=== PATIENT | male | born 1950 | race Caucasian/White ===

== ENCOUNTER → 2018-06-16 | Day surgery (SDC) | payer MEDICARE, OTHER ==
[2018-06-14 09:01] LABS: BASOPHILS % 0.5 % (0.0-1.0); EOSINOPHILS # (AUTO) 0.1 (0.0-0.4); HEMATOCRIT 45.4 % (38.2-49.6); HEMOGLOBIN 15.4 g/dL (14.0-18.0); LYMPHOCYTES # (AUTO) 1.5 (1.0-3.2); LYMPHOCYTES % 25.1 % (18.0-39.1); MEAN CORPUSCULAR HEMOGLOBIN 31.8 pg (28-32); MEAN CORPUSCULAR HGB CONC 33.9 g/dL (31-35); MEAN CORPUSCULAR VOLUME 93.6 fL (81-99); MONOCYTES # (AUTO) 0.6 (0.2-0.8); MONOCYTES % 10.4 % (4.4-11.3); NEUTROPHILS # (AUTO) 3.9 (2.1-6.9); NEUTROPHILS % 62.7 % (38.7-80.0); PLATELET COUNT 187 x10e3/uL (140-360); RED BLOOD COUNT 4.85 x10e6/uL (4.3-5.7)
--- NOTE | 2018-06-14 09:32 | Diagnostic Imaging Report ---
Chest, 2 views, 06/14/2018. History: Preop for finger surgery. Comparison: None available. Findings: The cardiomediastinal silhouette and pulmonary vasculature are within normal limits. There is biapical pleural thickening. The lungs are clear without evidence of consolidation or pleural effusion. Degenerative changes are present throughout the thoracic spine. There are no acute osseous or soft tissue abnormalities. Impression: No acute cardiopulmonary abnormality. Signed by: Nasir Gongora on 06/14/2018 9:29 AM
[~2018-06-16] MED LIST: ASPIR 8181 MG PO; BUPIVACAINE HCL 0.5% INJ 30 ML VIAL INJ ONE; CEFAZOLIN SOD 1 GM/NS 50ML 50 ML IV ONE; CIALIS PO; CLOPIDOGREL75 MG PO; DEXAMETHASONE SOD PHOS INJ 4 MG/ML VIAL ONE; EPHEDRINE SULFATE INJ 50 MG/10 ML SYR ONE; FENTANYL CITRATE/PF 100MCG/2 ML INJ ONE; LEVOTHYROXINE50 MCG PO; LIDOCAINE HCL 2% LOCAL INJ 5 ML SDV VIAL INJ ONE; METOPROLOL SUCC50 MG PO; MIDAZOLAM HCL 2 MG/2 ML VIAL ONE; MUPIROCIN 2% OINT 22 GM TUBE ONE; OMEPRAZOLE40 MG PO; ONDANSETRON HCL INJ 2MG/ML 2ML 2 MG/ML VIAL ONE; PRAVASTATIN SOD40 MG PO; PROPOFOL IV EMULSION 10 MG/ML 20 ML VIAL ONE; SEVOFLURANE INHAL SOLN 250 ML PEN BTL ONE; ZYRTEC10 MG PO
--- OUTSIDE RECORDS SUMMARY | 2018-06-16 05:18 | XMS REPORT | Summary of Care ---
Author Author [facility] Organization [facility] Address Unknown Phone Unavailable Encounter HQ Jhon(FIN) [id number] Date(s): 04/26/18 - 04/27/18 [facility] [address] [place] [address]- [phone] Discharge Disposition: Home or Self Care Vital Signs 1 2 3 Most recent to oldest [Reference Range]: 170.18 cm (04/26/18 10:54 AM) 170.18 cm (04/22/18 8:38 AM) Height 98.1 DegF (04/22/18 9:51 AM) Temperature Oral [96.4-99.1 DegF] 118/64 mmHg (04/27/18 7:00 AM) 124/60 mmHg (04/27/18 6:00 AM) 150/80 mmHg *HI* (04/27/18 5:00 AM) Blood Pressure [90-140/60-90 mmHg] 15 BRMIN (04/27/18 7:00 AM) 18 BRMIN (04/27/18 6:00 AM) 17 BRMIN (04/27/18 5:00 AM) Respiratory Rate [14-20 BRMIN] 66 bpm (04/26/18 7:23 AM) 64 bpm (04/22/18 9:51 AM) Peripheral Pulse Rate [60-100 bpm] 72.727 kg (04/26/18 10:54 AM) 73.773 kg (04/22/18 8:38 AM) Weight 25.11 m2 (04/26/18 10:54 AM) 25.47 m2 (04/22/18 8:38 AM) Body Mass Index Problem List Condition Effective Dates Status Health Status Informant GERD Active (gastroesophageal reflux disease)(Confirmed) HTN Active (hypertension)(Confi rmed) Hypothyroid(Confirme Active d) Cancer of Resolved prostate(Confirmed) PVD (peripheral Active vascular disease)(Confirmed) TIA (transient Resolved ischemic attack)(Confirmed) Allergies, Adverse Reactions, Alerts Substance Reaction Severity Status NKDA Active Medications acetaminophen 650 mg, 2 tab, Route: PO, Drug form: TAB, Q4H, Dosing Weight 73.773, kg, PRN [place] n Score 1-3, Start date: 04/26/18 10:22:00 CDT, Duration: 30 day, Stop date: 01/03 10:21:00 CDT Notes: Do not exceed 4 gm/day. (Same as: Tylenol) Start Date: 04/26/18 Stop Date: 04/27/18 Status: Discontinued aspirin 81 mg tablet, chewable 81 mg, 1 tab, Route: CHEW, Drug form: CHEWTAB, Daily, Dosing Weight 72.727, kg, Start date: 04/26/18 9:00:00 CDT, Duration: 30 day, Stop date: 05/25/18 9:00:00 CDT Notes: Take with food. Start Date: 04/26/18 Stop Date: 04/27/18 Status: Discontinued cetirizine 10 mg, 2 tab, Route: PO, Drug form: TAB, Daily, Dosing Weight 72.727, kg, Start date: 04/27/18 9:00:00 CDT, Duration: 30 day, Stop date: 05/26/18 9:00:00 CDT Notes: (Same As: Zyrtec) Start Date: 04/27/18 Stop Date: 04/27/18 Status: Discontinued clopidogrel 75 mg, 1 tab, Route: PO, Drug form: TAB, Daily, Dosing Weight 72.727, kg, Start date: 04/26/18 9:00:00 CDT, Duration: 30 day, Stop date: 05/25/18 9:00:00 CDT Notes: (Same As: Plavix) Start Date: 04/26/18 Stop Date: 04/27/18 Status: Discontinued enoxaparin 40 mg, 0.4 mL, Route: SUB-Q, Drug form: INJ, [id number], Dosing Weight 72.727, kg, Start date: 04/26/18 13:00:00 CDT, Duration: 30 day, Stop date: 05/25/18 13:00: 00 CDT Notes: (Same as: Lovenox) Start Date: 04/26/18 Stop Date: 04/27/18 Status: Discontinued ePHEDrine (ANES) Route: IV, Drug form: INJ, ONCE, Stop date: 04/26/18 9:06:00 CDT Start Date: 04/26/18 Stop Date: 04/26/18 Status: Completed fentaNYL (ANES) Route: IV, Drug form: INJ, ONCE, Stop date: 04/26/18 8:36:00 CDT Start Date: 04/26/18 Stop Date: 04/26/18 Status: Completed heparin (ANES) Route: IV, Drug form: INJ, ONCE, Stop date: 04/26/18 9:06:00 CDT Start Date: 04/26/18 Stop Date: 04/26/18 Status: Completed hydrALAZINE (ANES) Route: IV, Drug form: INJ, ONCE, Stop date: 04/26/18 9:50:00 CDT Start Date: 04/26/18 Stop Date: 04/26/18 Status: Completed Lactated Ringers Injection IV (ANES) 1000 mL Route: IV, Total Volume: 1,000, Start date: 04/26/18 7:45:00 CDT, Stop date: 02/02 8:45:00 CDT Start Date: 04/26/18 Stop Date: 04/26/18 Status: Completed levothyroxine 75 microgram, 1 tab, Route: PO, Drug form: TAB, [id number], Dosing Weight 72.727, kg , Start date: 04/27/18 6:30:00 CDT, Duration: 30 day, Stop date: 05/26/18 6:30:0 0 CDT Notes: Take 1 hour before or 2 hours after meal; Enteral feeds may interefere wi th the absorption of this medication. (Same as:Synthroid, Levothroid) Start Date: 04/27/18 Stop Date: 04/27/18 Status: Discontinued lidocaine (ANES) Route: IV, Drug form: INJ, ONCE, Stop date: 04/26/18 9:01:00 CDT Start Date: 04/26/18 Stop Date: 04/26/18 Status: Completed metoclopramide (ANES) Route: IV, Drug form: INJ, ONCE, Stop date: 04/26/18 8:36:00 CDT Start Date: 04/26/18 Stop Date: 04/26/18 Status: Completed midazolam (ANES) Route: IV, Drug form: SOLN, ONCE, Stop date: 04/26/18 8:36:00 CDT Start Date: 04/26/18 Stop Date: 04/26/18 Status: Completed morphine Sulfate 1 mg, 0.5 mL, Route: IVP, Drug form: SOLN, Q2H, Dosing Weight 73.773, kg, PRN Pa in Score 4-6, Start date: 04/26/18 10:22:00 CDT, Duration: 30 day, Stop date: 10:21:00 CDT Start Date: 04/26/18 Stop Date: 04/27/18 Status: Discontinued omeprazole 20 mg, Route: PO, Drug form: ECTAB, Daily, Dosing Weight 72.727, kg, Start date: 04/27/18 9:00:00 CDT, Duration: 30 day, Stop date: 05/26/18 9:00:00 CDT Start Date: 04/27/18 Stop Date: 04/26/18 Status: Deleted ondansetron 4 mg, 2 mL, Route: IVP, Drug form: INJ, Q8H, Dosing Weight 73.773, kg, PRN Nause a & Vomiting, Start date: 04/26/18 10:22:00 CDT, Duration: 30 day, Stop date: 05/26/18 10:21:00 CDT Notes: (Same as: Iesha) MEDICATION WASTE Product Size: 4 mgProduct Was tex: ___ mg Start Date: 04/26/18 Stop Date: 04/27/18 Status: Discontinued ondansetron (ANES) Route: IV, Drug form: INJ, ONCE, Stop date: 04/26/18 9:38:00 CDT Start Date: 04/26/18 Stop Date: 04/26/18 Status: Completed phenylephrine (ANES) Route: IV, Drug form: INJ, ONCE, Stop date: 04/26/18 9:06:00 CDT Start Date: 04/26/18 Stop Date: 04/26/18 Status: Completed pravastatin 40 mg, 2 tab, Route: PO, Drug form: TAB, Bedtime, Dosing Weight 72.727, kg, Star t date: 04/26/18 21:00:00 CDT, Duration: 30 day, Stop date: 05/25/18 21:00:00 CD T Notes: (Same as: Pravachol) Start Date: 04/26/18 Stop Date: 04/27/18 Status: Discontinued propofol (ANES) Route: IV, Drug form: INJ, ONCE, Stop date: 04/26/18 9:01:00 CDT Start Date: 04/26/18 Stop Date: 04/26/18 Status: Completed protamine (ANES) 10 mg Route: IV, Drug form: INJ, Start date: 04/26/18 9:22:00 CDT, Stop date: 04/26/18 10:22:00 CDT Start Date: 04/26/18 Stop Date: 04/26/18 Status: Completed Protonix 40 mg, 1 tab, Route: PO, Drug form: ECTAB, Daily, Start date: 04/27/18 9:00:00 C DT, Duration: 30 day, Stop date: 05/26/18 9:00:00 CDT Notes: Tablet should not be chewed or crushed.(Same as: Protonix) Start Date: 04/27/18 Stop Date: 04/27/18 Status: Discontinued Sodium Chloride 0.9% IV 1,000 mL 1,000 mL, Rate: 125 ml/hr, Infuse over: 8 hr, Route: IV, Dosing Weight 73.773 kg , Total Volume: 1,000, Start date: 04/26/18 10:22:00 CDT, Duration: 30 day, Stop date: 05/26/18 10:21:00 CDT, 1.88, m2 Start Date: 04/26/18 Stop Date: 04/27/18 Status: Discontinued Toprol-XL 50 mg oral tablet, extended release 50 mg, 1 tab, Route: PO, Drug form: ERTAB, Daily, Start date: 04/27/18 9:00:00 C DT, Duration: 30 day, Stop date: 05/26/18 9:00:00 CDT Notes: (Same as: Toprol XL) May split tab, but do not crush. Start Date: 04/27/18 Stop Date: 04/27/18 Status: Discontinued Results BLOOD BANK RESULTS 1 2 3 Most recent to oldest [Reference Range]: AB NEG *Unknown* (04/22/18 9:13 AM) ABO/Rh Negative (04/22/18 9:13 AM) Antibody Scrn ELECTROLYTES 1 2 3 Most recent to oldest [Reference Range]: 142 mEq/L (04/27/18 6:17 AM) 145 mEq/L (04/26/18 10:47 AM) 146 mEq/L *HI* (04/22/18 9:13 AM) Sodium Lvl [135-145 mEq/L] 3.9 mEq/L (04/27/18 6:17 AM) 4.3 mEq/L (04/26/18 10:47 AM) 4.9 mEq/L (04/22/18 9:13 AM) Potassium Lvl [3.5-5.1 mEq/L] 109 mEq/L (04/27/18 6:17 AM) 111 mEq/L *HI* (04/26/18 10:47 AM) 110 mEq/L *HI* (04/22/18 9:13 AM) Chloride Lvl [95-109 mEq/L] 27 mEq/L (04/27/18 6:17 AM) 28 mEq/L (04/26/18 10:47 AM) 32 mEq/L (04/22/18 9:13 AM) CO2 [24-32 mEq/L] 9.9 mEq/L *LOW* (04/27/18 6:17 AM) 10.3 mEq/L (04/26/18 10:47 AM) 8.9 mEq/L *LOW* (04/22/18 9:13 AM) AGAP [10.0-20.0 mEq/L] CHEM PANEL 1 2 3 Most recent to oldest [Reference Range]: 0.99 mg/dL (04/27/18 6:17 AM) 0.96 mg/dL (04/26/18 10:47 AM) 1.08 mg/dL (04/22/18 9:13 AM) Creatinine Lvl [0.50-1.40 mg/dL] 80 mL/min/1.73m2 1 *NA* (04/27/18 6:17 AM) 83 mL/min/1.73m2 2 *NA* (04/26/18 10:47 AM) 72 mL/min/1.73m2 3 *NA* (04/22/18 9:13 AM) eGFR 9 mg/dL (04/27/18 6:17 AM) 10 mg/dL (04/26/18 10:47 AM) 10 mg/dL (04/22/18 9:13 AM) BUN [7-22 mg/dL] 118 mg/dL *HI* (04/27/18 6:17 AM) 107 mg/dL *HI* (04/26/18 10:47 AM) 113 mg/dL *HI* (04/22/18 9:13 AM) Glucose Lvl [70-99 mg/dL] 8.7 mg/dL (04/27/18 6:17 AM) 8.5 mg/dL (04/26/18 10:47 AM) 9.1 mg/dL (04/22/18 9:13 AM) Calcium Lvl [8.5-10.5 mg/dL] 1Result Comment: The eGFR is calculated using the CKD-EPI formula. In most young, healthy individuals the eGFR will be >90 mL/min/1.73m2. The eGFR declines with age. An eGFR of 60-89 may be normal in some populations, particularly the elderly, for whom the CKD-EPI formula has not been extensively validated. Use of the eGFR is not recommended in the following populations: Individuals with unstable creatinine concentrations, including patients and those with serious co-morbid conditions. Patients with extremes in muscle mass or diet. The data above are obtained from the National Kidney Disease Education Program ( NKDEP) which additionally recommends that when the eGFR is used in patients with extremes of body mass index for purposes of drug dosing, the eGFR should be mul tiplied by the estimated BMI. 2Result Comment: The eGFR is calculated using the CKD-EPI formula. In most young, healthy individuals the eGFR will be >90 mL/min/1.73m2. The eGFR declines with age. An eGFR of 60-89 may be normal in some populations, particularly the elderly, for whom the CKD-EPI formula has not been extensively validated. Use of the eGFR is not recommended in the following populations: Individuals with unstable creatinine concentrations, including patients and those with serious co-morbid conditions. Patients with extremes in muscle mass or diet. The data above are obtained from the National Kidney Disease Education Program ( NKDEP) which additionally recommends that when the eGFR is used in patients with extremes of body mass index for purposes of drug dosing, the eGFR should be mul tiplied by the estimated BMI. 3Result Comment: The eGFR is calculated using the CKD-EPI formula. In most young, healthy individuals the eGFR will be >90 mL/min/1.73m2. The eGFR declines with age. An eGFR of 60-89 may be normal in some populations, particularly the elderly, for whom the CKD-EPI formula has not been extensively validated. Use of the eGFR is not recommended in the following populations: Individuals with unstable creatinine concentrations, including patients and those with serious co-morbid conditions. Patients with extremes in muscle mass or diet. The data above are obtained from the National Kidney Disease Education Program ( NKDEP) which additionally recommends that when the eGFR is used in patients with extremes of body mass index for purposes of drug dosing, the eGFR should be mul tiplied by the estimated BMI. URINE AND STOOL 1 2 3 Most recent to oldest [Reference Range]: Clear (04/22/18 9:13 AM) UA Turbidity [Clear] Ltyellow *NA* (04/22/18 9:13 AM) UA Color 7.0 (04/22/18 9:13 AM) UA pH [5.0-8.0] 1.005 (04/22/18 9:13 AM) UA Spec Grav [<=1.030] Negative *NA* (04/22/18 9:13 AM) UA Glucose [Negative] Small *ABN* (04/22/18 9:13 AM) UA Blood [Negative] Negative *NA* (04/22/18 9:13 AM) UA Ketones [Negative] Negative (04/22/18 9:13 AM) UA Protein [Negative] <=1.0 mg/dL *NA* (04/22/18 9:13 AM) UA Urobilinogen [0.1-1.0 mg/dL] Negative *NA* (04/22/18 9:13 AM) UA Bili [Negative] Negative (04/22/18 9:13 AM) UA Leuk Est [Negative] Negative (04/22/18 9:13 AM) UA Nitrite [Negative] 1 /HPF (04/22/18 9:13 AM) UA WBC [0-5 /HPF] <1 /HPF (04/22/18 9:13 AM) UA RBC [0-2 /HPF] None Seen (04/22/18 9:13 AM) UA Sq Epi [Few] HEMATOLOGY 1 2 3 Most recent to oldest [Reference Range]: 7.9 K/CMM (04/27/18 6:17 AM) 5.2 K/CMM (04/26/18 10:47 AM) 5.4 K/CMM (04/22/18 9:13 AM) WBC [3.7-10.4 K/CMM] 4.13 M/CMM *LOW* (04/27/18 6:17 AM) 4.53 M/CMM *LOW* (04/26/18 10:47 AM) 4.69 M/CMM *LOW* (04/22/18 9:13 AM) RBC [4.70-6.10 M/CMM] 13.1 g/dL *LOW* (04/27/18 6:17 AM) 14.2 g/dL (04/26/18 10:47 AM) 15.0 g/dL (04/22/18 9:13 AM) Hgb [14.0-18.0 g/dL] 39.5 % *LOW* (04/27/18 6:17 AM) 42.1 % (04/26/18 10:47 AM) 44.0 % (04/22/18 9:13 AM) Hct [42.0-54.0 %] 95.5 fL *HI* (04/27/18 6:17 AM) 92.9 fL (04/26/18 10:47 AM) 93.8 fL (04/22/18 9:13 AM) MCV [80.0-94.0 fL] 31.6 pg *HI* (04/27/18 6:17 AM) 31.3 pg *HI* (04/26/18 10:47 AM) 31.9 pg *HI* (04/22/18 9:13 AM) MCH [27.0-31.0 pg] 33.1 g/dL (04/27/18 6:17 AM) 33.7 g/dL (04/26/18 10:47 AM) 34.0 g/dL (04/22/18 9:13 AM) MCHC [32.0-36.0 g/dL] 13.6 % (04/27/18 6:17 AM) 13.2 % (04/26/18 10:47 AM) 13.6 % (04/22/18 9:13 AM) RDW [11.5-14.5 %] 10.2 fL (04/27/18 6:17 AM) 10.0 fL (04/26/18 10:47 AM) 9.9 fL (04/22/18 9:13 AM) MPV [7.4-10.4 fL] 143 K/CMM (04/27/18 6:17 AM) 138 K/CMM (04/26/18 10:47 AM) 155 K/CMM (04/22/18 9:13 AM) Platelet [133-450 K/CMM] 78.2 % *HI* (04/27/18 6:17 AM) 66.3 % (04/26/18 10:47 AM) 61.8 % (04/22/18 9:13 AM) Segs [45.0-75.0 %] 11.5 % *LOW* (04/27/18 6:17 AM) 22.5 % (04/26/18 10:47 AM) 26.4 % (04/22/18 9:13 AM) Lymphocytes [20.0-40.0 %] 10.0 % (04/27/18 6:17 AM) 10.0 % (04/26/18 10:47 AM) 10.4 % (04/22/18:13 AM) Monocytes [2.0-12.0 %] 0.2 % (04/27/18 6:17 AM) 0.6 % (04/26/18 10:47 AM) 1.0 % (04/22/18 9:13 AM) Eosinophils [0.0-4.0 %] 0.1 % (04/27/18 6:17 AM) 0.6 % (04/26/18 10:47 AM) 0.4 % (04/22/18 9:13 AM) Basophils [0.0-1.0 %] 6.2 K/CMM (04/27/18 6:17 AM) 3.5 K/CMM (04/26/18 10:47 AM) 3.3 K/CMM (04/22/18 9:13 AM) Neutrophils # [1.5-8.1 K/CMM] 0.9 K/CMM *LOW* (04/27/18 6:17 AM) 1.2 K/CMM (04/26/18 10:47 AM) 1.4 K/CMM (04/22/18 9:13 AM) Lymphocytes # [1.0-5.5 K/CMM] 0.8 K/CMM (04/27/18 6:17 AM) 0.5 K/CMM (04/26/18 10:47 AM) 0.6 K/CMM (04/22/18 9:13 AM) Monocytes # [0.0-0.8 K/CMM] 0.1 K/CMM (04/22/18 9:13 AM) Eosinophils # [0.0-0.5 K/CMM] 12.4 seconds (04/22/18 9:13 AM) PT [12.0-14.7 seconds] 0.94 (04/22/18 9:13 AM) INR [0.85-1.17] 28.6 seconds (04/22/18 9:13 AM) PTT [22.9-35.8 seconds] Immunizations No data available for this section Procedures Procedure Date Related Diagnosis Body Site Status Angioplasty 01/25/18 Completed Atherectomy by laser 01/25/18 Completed Stent placement 2016 Completed Carotid endarterectomy 2015 Completed Hernia repair 2011 Completed Procedure 2008 Completed Social History Social History Type Response Substance Abuse Use: None. Sexual Sexually active: Yes. Exercise 1 Employment/School Status: Retired. Alcohol Current, Type Liquor. Frequency: Daily. Smoking Status Former smoker; Type: Cigarettes; Exposure to Tobacco Smoke None; Cigarette Smoking Last 365 Days No; Reg Smoking Cessation Counseling No entered on: 04/26/18 1stays active daily in yard Assessment and Plan Extracted from: Title: Clinical Document Author: Jerrell Pond MD Date: 04/26/18 OPERATIVE REPORT Date: April 26, 2018 Surgeon: Jerrell Pond MD Preoperative diagnosis: Peripheral vascular disease Postoperative diagnosis: Same Procedure: Abdominal and bilateral lower extremity angiogram, CSI atherectomy and drug-coated balloon angioplasty of the right superficial femoral artery. Indication: Symptomatic SFA stenosis In detail: The patient room and given general anesthesia with an LMA. Both groins were prepped and draped in usual sterile manner. Left achieved using ultrasound guidance and micropuncture technique. Patient was systemically heparinized. A 5 Welsh sheath was inserted. Abdominal bilateral lower extremity angiogram was his distal aortoiliac artery had some disease but it looked critical. The left superficial femoral has been treated before recently appears to be patent with patent stents and fairly decent runoff. On the right side the common femoral as well as the profunda and proximal superficial artery were patent. There was about a 10 cm segment calcified disease in the distal superficial femoral artery with 2 areas that appears to. Patient had a fairly decent runoff. A 6 minutes of the right superficial femoral artery. The lesions were crossed without much difficulty. CSI atherectomy was a 2.0 solid device was performed followed by a drug-coated balloon angioplasty using a 6 x 150 balloon. It had to be inflated to 7 austin to achieve an effect on the stenotic areas. A completion I would a patent superficial femoral artery however there was a dissection involving the proximal LAD did not appears to be hemodynamically compromising the flow. Repeat angioplasty with a known inflated to 3 austin slight improved angiographic result. There was very good flow distally. The sheath was then removed, heparin was then reversed with protamine and hemostasis was achieved with the minx device. Patient tolerated procedure well.
--- OUTSIDE RECORDS SUMMARY | 2018-06-16 05:18 | XMS REPORT | Summary of Care ---
Author Author [facility] Outpatient Imaging [facility] Address Unknown Phone Unavailable Encounter HQ Encntr_alias(FIN) [id number] Date(s): 06/15/16 - 06/15/16 [facility] Outpatient Imaging [facility] [address] [facility], [address] [place] [phone] Discharge Disposition: Home or Self Care Attending Physician: Tessa Degroot DO Vital Signs No data available for this section Problem List No data available for this section Allergies, Adverse Reactions, Alerts No data available for this section Medications No data available for this section Results No data available for this section Immunizations No data available for this section Procedures No data available for this section Social History No data available for this section Assessment and Plan No data available for this section
--- OUTSIDE RECORDS SUMMARY | 2018-06-16 05:18 | XMS REPORT | Continuity of Care Document ---
Author Author [facility] Interface Address Unknown Phone Unavailable Problems Problem Status Onset Date Classification Date Reported Comments Source UNK Active 04/12/2018 [facility] I73.9 Active 12/27/2017 [facility] M25.561 - PAIN IN RIGHT KNEE Active 06/15/2016 [facility] GERD (<span ID="[id number]">Confirmed</span>) Active Problem 04/29/2018 [facility] HTN (<span ID="[id number]">Confirmed</span>) Active Problem 04/29/2018 [facility] Hypothyroid Active Problem 04/29/2018 [facility] Cancer of prostate Resolved Problem 04/29/2018 [facility] PVD (<span ID="[id number]">Confirmed</span>) Active Problem 04/29/2018 [facility] TIA (<span ID="[id number]">Confirmed</span>) Resolved Problem 04/29/2018 [facility] PERIPHERAL VASCULAR DISEASE, UNSPECIFIED Active [facility] EMBOLISM AND THROMBOSIS OF ARTERIES OF T Active [facility] Medications Medication Details Route Status Patient Instructions Ordering Provider Order Date Source Omeprazole 20 mg, Route: PO, Drug form: ECTAB, Daily, Dosing Weight 72.727, kg, Start date: 04/27/18 9:00:00 CDT, Duration: 30 day, Stop date: 05/26/18 9:00:00 CDT No Longer Active 04/27/2018 [facility] 24 HR Metoprolol Tartrate 50 MG Extended Release Tablet [Toprol] 50 mg, 1 tab, Route: PO, Drug form: ERTAB, Daily, Start date: 04/27/18 9:00:00 CDT, Duration: 30 day, Stop date: 05/26/18 9:00:00 CDTNotes: (Same as: Toprol XL) May split tab, but do not crush. Inactive 04/27/2018 [facility] Protonix 40 mg, 1 tab, Route: PO, Drug form: ECTAB, Daily, Start date: 04/27/18 9:00:00 CDT, Duration: 30 day, Stop date: 05/26/18 9:00:00 CDTNotes: Tablet should not be chewed or crushed. (Same as: Protonix) Inactive 04/27/2018 [facility] Cetirizine 10 mg, 2 tab, Route: PO, Drug form: TAB, Daily, Dosing Weight 72.727, kg, Start date: 04/27/18 9:00:00 CDT, Duration: 30 day, Stop date: 05/26/18 9:00:00 CDTNotes: (Same As: Zyrtec) Inactive 04/27/2018 [facility] Thyroxine 75 microgram, 1 tab, Route: PO, Drug form: TAB, [id number], Dosing Weight 72.727, kg, Start date: 04/27/18 6:30:00 CDT, Duration: 30 day, Stop date: 05/26/18 6:30:00 CDTNotes: Take 1 hour before or 2 hours after meal; Enteral feeds may interefere with the absorption of this medication. (Same as:Synthroid, Levothroid) Inactive 04/27/2018 [facility] Pravastatin 40 mg, 2 tab, Route: PO, Drug form: TAB, Bedtime, Dosing Weight 72.727, kg, Start date: 04/26/18 21:00:00 CDT, Duration: 30 day, Stop date: 05/25/18 21:00:00 CDTNotes: (Same as: Pravachol) No Longer Active 04/27/2018 [facility] Enoxaparin 40 mg, 0.4 mL, Route: SUB-Q, Drug form: INJ, [id number], Dosing Weight 72.727, kg, Start date: 04/26/18 13:00:00 CDT, Duration: 30 day, Stop date: 05/25/18 13:00:00 CDTNotes: (Same as: Lovenox) No Longer Active 04/26/2018 [facility] Acetaminophen 650 mg, 2 tab, Route: PO, Drug form: TAB, Q4H, Dosing Weight 73.773, kg, PRN Pain Score 1-3, Start date: 04/26/18 10:22:00 CDT, Duration: 30 day, Stop date: 05/26/18 10:21:00 CDTNotes: Do not exceed 4 gm/day. (Same as: Tylenol) No Longer Active 04/26/2018 [facility] Ondansetron 4 mg, 2 mL, Route: IVP, Drug form: INJ, Q8H, Dosing Weight 73.773, kg, PRN Nausea & Vomiting, Start date: 04/26/18 10:22:00 CDT, Duration: 30 day, Stop date: 05/26/18 10:21:00 CDTNotes: (Same as: Iesha) MEDICATION WASTE Product Size: 4 mg Product Wasted: ___ mg No Longer Active 04/26/2018 [facility] Morphine 1 mg, 0.5 mL, Route: IVP, Drug form: SOLN, Q2H, Dosing Weight 73.773, kg, PRN Pain Score 4-6, Start date: 04/26/18 10:22:00 CDT, Duration: 30 day, Stop date: 05/26/18 10:21:00 CDT No Longer Active 04/26/2018 [facility] Sodium Chloride 0.9% IV 1,000 mL 1,000 mL, Rate: 125 ml/hr, Infuse over: 8 hr, Route: IV, Dosing Weight 73.773 kg, Total Volume: 1,000, Start date: 04/26/18 10:22:00 CDT, Duration: 30 day, Stop date: 05/26/18 10:21:00 CDT, 1.88, m2 No Longer Active 04/26/2018 [facility] hydrALAZINE (ANES) Route: IV, Drug form: INJ, ONCE, Stop date: 04/26/18 9:50:00 CDT Inactive 04/26/2018 [facility] ondansetron (ANES) Route: IV, Drug form: INJ, ONCE, Stop date: 04/26/18 9:38:00 CDT Inactive 04/26/2018 [facility] protamine (ANES) 10 mg Route: IV, Drug form: INJ, Start date: 04/26/18 9:22:00 CDT, Stop date: 04/26/18 10:22:00 CDT Inactive 04/26/2018 [facility] phenylephrine (ANES) Route: IV, Drug form: INJ, ONCE, Stop date: 04/26/18 9:06:00 CDT Inactive 04/26/2018 [facility] heparin (ANES) Route: IV, Drug form: INJ, ONCE, Stop date: 04/26/18 9:06:00 CDT Inactive 04/26/2018 [facility] ePHEDrine (ANES) Route: IV, Drug form: INJ, ONCE, Stop date: 04/26/18 9:06:00 CDT Inactive 04/26/2018 [facility] lidocaine (ANES) Route: IV, Drug form: INJ, ONCE, Stop date: 04/26/18 9:01:00 CDT Inactive 04/26/2018 [facility] propofol (ANES) Route: IV, Drug form: INJ, ONCE, Stop date: 04/26/18 9:01:00 CDT Inactive 04/26/2018 [facility] clopidogrel 75 mg, 1 tab, Route: PO, Drug form: TAB, Daily, Dosing Weight 72.727, kg, Start date: 04/26/18 9:00:00 CDT, Duration: 30 day, Stop date: 05/25/18 9:00:00 CDTNotes: (Same As: Plavix) No Longer Active 04/26/2018 [facility] Aspirin 81 MG Chewable Tablet 81 mg, 1 tab, Route: CHEW, Drug form: CHEWTAB, Daily, Dosing Weight 72.727, kg, Start date: 04/26/18 9:00:00 CDT, Duration: 30 day, Stop date: 05/25/18 9:00:00 CDTNotes: Take with food. No Longer Active 04/26/2018 [facility] fentaNYL (ANES) Route: IV, Drug form: INJ, ONCE, Stop date: 04/26/18 8:36:00 CDT Inactive 04/26/2018 [facility] midazolam (ANES) Route: IV, Drug form: SOLN, ONCE, Stop date: 04/26/18 8:36:00 CDT Inactive 04/26/2018 [facility] metoclopramide (ANES) Route: IV, Drug form: INJ, ONCE, Stop date: 04/26/18 8:36:00 CDT Inactive 04/26/2018 [facility] Lactated Ringers Injection IV (ANES) 1000 mL Route: IV, Total Volume: 1,000, Start date: 04/26/18 7:45:00 CDT, Stop date: 04/26/18 8:45:00 CDT Inactive 04/26/2018 [facility] Allergies, Adverse Reactions, Alerts Substance Category Reaction Severity Reaction type Status Date Reported Comments Source Immunizations Immunization Date Given Site Status Last Updated Comments Source Results Order Name Results Value Reference Range Date Interpretation Comments Source ELECTROLYTES AGAP 9.9 meq/L 10.0 - 20.0 04/27/2018 [facility] ELECTROLYTES CO2 27 meq/L 24 - 32 04/27/2018 [facility] ELECTROLYTES Calcium Lvl 8.7 mg/dL 8.5 - 10.5 04/27/2018 [facility] ELECTROLYTES Creatinine Lvl 0.99 mg/dL 0.50 - 1.40 04/27/2018 [facility] ELECTROLYTES Glucose Lvl 118 mg/dL 70 - 99 04/27/2018 [facility] ELECTROLYTES BUN 9 mg/dL 7 - 22 04/27/2018 [facility] ELECTROLYTES eGFR 80 mL/min/1.73m2 04/27/2018 Result Comment: The eGFR is calculated using the [...] from the National Kidney Disease Education Program (NKDEP) which additionally recommends that when the eGFR is used in patients with extremes of body mass index for purposes of drug dosing, the eGFR should be multiplied by the estimated BMI. [facility] ELECTROLYTES Chloride Lvl 109 meq/L 95 - 109 04/27/2018 [facility] ELECTROLYTES Potassium Lvl 3.9 meq/L 3.5 - 5.1 04/27/2018 [facility] ELECTROLYTES Sodium Lvl 142 meq/L 135 - 145 04/27/2018 [facility] HEMATOLOGY MCH 31.6 pg 27.0 - 31.0 04/27/[address] [facility] MPV 10.2 fL 7.4 - 10.4 04/27/[address] [facility] RDW 13.6 % 11.5 - 14.5 04/27/[address] [facility] MCHC 33.1 g/dL 32.0 - 36.0 04/27/[address] [facility] Hct 39.5 % 42.0 - 54.0 04/27/[address] [facility] MCV 95.5 fL 80.0 - 94.0 04/27/[address] [facility] Platelet 143 K/CMM 133 - 450 04/27/[address] [facility] Hgb 13.1 g/dL 14.0 - 18.0 04/27/[address] [facility] RBC 4.13 M/CMM 4.70 - 6.10 04/27/[address] [facility] WBC 7.9 K/CMM 3.7 - 10.4 04/27/[address] [facility] Monocytes # 0.8 K/CMM 0.0 - 0.8 04/27/[address] [facility] Lymphocytes # 0.9 K/CMM 1.0 - 5.5 04/27/[address] [facility] Neutrophils # 6.2 K/CMM 1.5 - 8.1 04/27/[address] [facility] Basophils 0.1 % 0.0 - 1.0 04/27/[address] [facility] Monocytes 10.0 % 2.0 - 12.0 04/27/[address] [facility] Eosinophils 0.2 % 0.0 - 4.0 04/27/[address] [facility] Segs 78.2 % 45.0 - 75.0 04/27/[address] [facility] Lymphocytes 11.5 % 20.0 - 40.0 04/27/2018 [facility] Chest 1view DX Chest 1view DX Patient Name: RUBINA PROCTOR : 1950; Age: 67 years y/o Male MR: [id number] * CHEST, portable, 1 view HISTORY: Status post lower extremity angiogram, respiratory distress. COMPARISON: 04/22/2018. The study of 01/21/2018 was reviewed. TECHNIQUE: A portable frontal radiograph of the chest was obtained. FINDINGS: There is mild right basilar discoid atelectasis. There is a slightly shallow degree of inspiration. There is slight chronic elevation the right hemidiaphragm which is unchanged. The lungs are otherwise clear. There are no pulmonary infiltrates or pleural effusions. The heart is normal in size. The regional skeleton is unremarkable. IMPRESSION: 1. No active disease. 2. Slightly shallow degree of inspiration and mild right basilar atelectasis. SL: [id number] 04/27/2018 - - Read by: Jesus Colunga MD Dictated Date/time: 04/27/18 08:52 Electronically Signed by: Jesus Colunga MD 04/27/18 08:54 FINAL REPORT [facility] CHEM PANEL eGFR 83 mL/min/1.73m2 04/26/2018 Result Comment: The eGFR is calculated using the [...] from the National Kidney Disease Education Program (NKDEP) which additionally recommends that when the eGFR is used in patients with extremes of body mass index for purposes of drug dosing, the eGFR should be multiplied by the estimated BMI. [facility] CHEM PANEL AGAP 10.3 meq/L 10.0 - 20.0 04/26/2018 [facility] CHEM PANEL Calcium Lvl 8.5 mg/dL 8.5 - 10.5 04/26/2018 [facility] CHEM PANEL CO2 28 meq/L 24 - 32 04/26/2018 [facility] CHEM PANEL Potassium Lvl 4.3 meq/L 3.5 - 5.1 04/26/2018 [facility] CHEM PANEL Chloride Lvl 111 meq/L 95 - 109 04/26/2018 [facility] CHEM PANEL Sodium Lvl 145 meq/L 135 - 145 04/26/2018 [facility] CHEM PANEL Creatinine Lvl 0.96 mg/dL 0.50 - 1.40 04/26/2018 [facility] CHEM PANEL BUN 10 mg/dL 7 - 22 04/26/2018 [facility] CHEM PANEL Glucose Lvl 107 mg/dL 70 - 99 04/26/2018 [facility] HEMATOLOGY Segs 66.3 % 45.0 - 75.0 04/26/2018 [facility] HEMATOLOGY Lymphocytes 22.5 % 20.0 - 40.0 04/26/2018 [facility] HEMATOLOGY Lymphocytes # 1.2 K/CMM 1.0 - 5.5 04/26/2018 [facility] HEMATOLOGY Monocytes # 0.5 K/CMM 0.0 - 0.8 04/26/[address] [facility] Basophils 0.6 % 0.0 - 1.0 04/26/[address] [facility] Neutrophils # 3.5 K/CMM 1.5 - 8.1 04/26/[address] [facility] Monocytes 10.0 % 2.0 - 12.0 04/26/[address] [facility] Eosinophils 0.6 % 0.0 - 4.0 04/26/[address] [facility] MPV 10.0 fL 7.4 - 10.4 04/26/[address] [facility] Platelet 138 K/CMM 133 - 450 04/26/[address] [facility] RDW 13.2 % 11.5 - 14.5 04/26/[address] [facility] MCHC 33.7 g/dL 32.0 - 36.0 04/26/[address] [facility] MCH 31.3 pg 27.0 - 31.0 04/26/[address] [facility] MCV 92.9 fL 80.0 - 94.0 04/26/[address] [facility] Hct 42.1 % 42.0 - 54.0 04/26/[address] [facility] Hgb 14.2 g/dL 14.0 - 18.0 04/26/[address] [facility] RBC 4.53 M/CMM 4.70 - 6.10 04/26/[address] [facility] WBC 5.2 K/CMM 3.7 - 10.4 04/26/2018 [facility] BLOOD BANK RESULTS Antibody Scrn Negative (04/22/18 9:13 AM) 04/22/2018 [facility] BLOOD [facility] RESULTS ABO/Rh AB NEG 04/22/2018 [facility] ELECTROLYTES AGAP 8.9 meq/L 10.0 - 20.0 04/22/2018 [facility] ELECTROLYTES eGFR 72 mL/min/1.73m2 04/22/2018 Result Comment: The eGFR is calculated using the [...] from the National Kidney Disease Education Program (NKDEP) which additionally recommends that when the eGFR is used in patients with extremes of body mass index for purposes of drug dosing, the eGFR should be multiplied by the estimated BMI. [facility] ELECTROLYTES Potassium Lvl 4.9 meq/L 3.5 - 5.1 04/22/2018 [facility] ELECTROLYTES Sodium Lvl 146 meq/L 135 - 145 04/22/2018 [facility] ELECTROLYTES Creatinine Lvl 1.08 mg/dL 0.50 - 1.40 04/22/2018 [facility] ELECTROLYTES Calcium Lvl 9.1 mg/dL 8.5 - 10.5 04/22/2018 [facility] ELECTROLYTES CO2 32 meq/L 24 - 32 04/22/2018 [facility] ELECTROLYTES Chloride Lvl 110 meq/L 95 - 109 04/22/2018 [facility] ELECTROLYTES BUN 10 mg/dL 7 - 22 04/22/2018 [facility] ELECTROLYTES Glucose Lvl 113 mg/dL 70 - 99 04/22/[address] [facility] Neutrophils # 3.3 K/CMM 1.5 - 8.1 04/22/[address] [facility] Eosinophils # 0.1 K/CMM 0.0 - 0.5 04/22/[address] [facility] Lymphocytes # 1.4 K/CMM 1.0 - 5.5 04/22/[address] [facility] Monocytes # 0.6 K/CMM 0.0 - 0.8 04/22/[address] [facility] Basophils 0.4 % 0.0 - 1.0 04/22/[address] [facility] Eosinophils 1.0 % 0.0 - 4.0 04/22/[address] [facility] Monocytes 10.4 % 2.0 - 12.0 04/22/[address] [facility] Segs 61.8 % 45.0 - 75.0 04/22/[address] [facility] Lymphocytes 26.4 % 20.0 - 40.0 04/22/[address] [facility] PTT 28.6 s 22.9 - 35.8 04/22/[address] [facility] INR 0.94 0.85 - 1.17 04/22/[address] [facility] PT 12.4 s 12.0 - 14.7 04/22/[address] [facility] RBC 4.69 M/CMM 4.70 - 6.10 04/22/[address] [facility] Hgb 15.0 g/dL 14.0 - 18.0 04/22/2018 [facility] HEMATOLOGY WBC 5.4 K/CMM 3.7 - 10.4 04/22/2018 [facility] HEMATOLOGY MPV 9.9 fL 7.4 - 10.4 04/22/2018 [facility] HEMATOLOGY Platelet 155 K/CMM 133 - 450 04/22/2018 [facility] HEMATOLOGY RDW 13.6 % 11.5 - 14.5 04/22/[address] [facility] MCHC 34.0 g/dL 32.0 - 36.0 04/22/2018 [facility] HEMATOLOGY MCV 93.8 fL 80.0 - 94.0 04/22/2018 [facility] HEMATOLOGY Hct 44.0 % 42.0 - 54.0 04/22/[address] [facility] MCH 31.9 pg 27.0 - 31.0 04/22/2018 [facility] URINE AND STOOL UA Leuk Est Negative (04/22/18 9:13 AM) Negative 04/22/2018 [facility] URINE AND STOOL UA Sq Epi None Seen (04/22/18 9:13 AM) Few 04/22/2018 [facility] URINE AND STOOL UA WBC 1 /HPF 0 - 5 04/22/2018 [facility] URINE AND STOOL UA pH 7.0 5.0 - 8.0 04/22/2018 [facility] URINE AND STOOL UA Spec Grav 1.005 <=1.030 04/22/2018 [facility] URINE AND STOOL UA Color Ltyellow 04/22/2018 [facility] URINE AND STOOL UA Protein Negative (04/22/18 9:13 AM) Negative 04/22/2018 [facility] URINE AND STOOL UA Turbidity Clear (04/22/18 9:13 AM) Clear 04/22/2018 [facility] URINE AND STOOL UA Ketones Negative *NA* (04/22/18 9:13 AM) Negative 04/22/2018 [facility] URINE AND STOOL UA Glucose Negative *NA* (04/22/18 9:13 AM) Negative 04/22/2018 [facility] URINE AND STOOL UA Bili Negative *NA* (04/22/18 9:13 AM) Negative 04/22/2018 [facility] URINE AND STOOL UA Urobilinogen <=1.0 mg/dL 0.1 - 1.0 04/22/2018 [facility] URINE AND STOOL UA Nitrite Negative (04/22/18 9:13 AM) Negative 04/22/2018 [facility] URINE AND STOOL UA Blood Small *ABN* (04/22/18 9:13 AM) Negative 04/22/2018 [facility] URINE AND STOOL UA RBC null 0 - 2 04/22/2018 [facility] Chest 2 views DX Chest 2 views DX Two-view chest. INDICATION: Preop. Comparison: 01/21/2018 chest radiograph. FINDINGS: The cardiomediastinal silhouette is normal in size. Lungs are clear. Costophrenic angles are sharp. No suspicious osseous abnormality is seen. IMPRESSION: No acute or active pulmonary findings. SL: [id number] 04/22/2018 - - Read by: Davis Kumar MD Dictated Date/time: 04/22/18 09:28 Electronically Signed by: Davis Kumar MD 04/22/18 09:28 FINAL REPORT [facility] Chest 2 views DX Chest 2 views DX Patient Name: RUBINA PROCTOR : 1950; Age: 67 years y/o Male MR: [id number] Study: Chest 2 views DX 01/21/2018 9:34 AM [facility] TECHNICIAN Ordering Physician: Jerrell Pond MD Comparison: None Clinical Indication: Coughing - pre-op cxr Findings: No focal consolidation, pleural effusion or pneumothorax. The cardiac silhouette is within normal limits. Midline trachea. Atherosclerotic calcifications of the aortic arch. Degenerative changes of the spine. IMPRESSION: No acute thoracic abnormalities. SL: [id number] 01/21/2018 - - Read by: Ron Conley Dictated Date/time: 01/21/18 11:10 Electronically Signed by: Ron Conley 01/21/18 11:12 FINAL REPORT [facility] Abdominal Aorta with runoff CTA Abdominal Aorta with runoff CTA AORTOFEMORAL CTA: HISTORY: Peripheral arterial disease with bilateral lower extremity pain, paresthesias and numbness. History of left superficial femoral stent. TECHNIQUE: Multislice helical imaging was done from the upper thoracic aorta through the feet bilaterally during IV contrast bolus. Sagittal and coronal MIP tomograms were also done. Sagittal and coronal MIP tomograms and 3-D volume rendered images were obtained. DLP 1216 mGycm. AORTOILIAC: There is calcified and noncalcified plaque in the descending thoracic aorta and abdominal aorta, with more extensive calcified plaque in the infrarenal aorta and common iliac arteries. There are focal moderate stenoses of the mid infrarenal aorta, right common iliac artery origin and the mid left common iliac artery. There is no other significant aortoiliac stenosis. The celiac, SMA and AIXA are patent without significant stenosis. The renal arteries are patent with mild stenosis of the origin of the main right renal artery. A small accessory upper pole right renal artery is noted. The internal iliac trunks are patent with moderate stenoses at the origins. RIGHT LOWER EXTREMITY: Diffuse atherosclerotic changes in the lower extremity vasculature is noted. There is focal occlusion or severe stenosis in the distal superficial femoral artery adductor canal. The popliteal artery is patent showing mild disease. There is multifocal stenotic and occlusive disease throughout the runoff vessels, with a dominant posterior tibial artery showing occlusion in the distal leg with reconstitution at the ankle. LEFT LOWER EXTREMITY: Diffuse atherosclerotic changes in the lower extremity vasculature is noted. There is moderate stenotic disease involving the proximal superficial femoral artery. There is a stent extending from the proximal superficial femoral artery to the proximal popliteal artery showing severe in- stent restenosis and occlusion in the mid stent. There is reconstitution of a small caliber popliteal artery below the stent. There is multifocal stenotic and occlusive disease of the runoff vessels, with a dominant posterior tibial artery which appears continuous. NON-ANGIOGRAPHIC FINDINGS: The liver, spleen, pancreas, kidneys and adrenal glands show no significant abnormalities. The gallbladder is unremarkable. There are no significant gastrointestinal tract abnormalities. Bilateral inguinal hernia repair with mesh is noted. There are no acute osseous abnormalities. There are no significant abnormalities in the visible chest. IMPRESSION: 1. Diffuse atherosclerotic disease in the aorta, iliac arteries and lower extremities. 2. Moderate focal stenotic disease in the mid infrarenal aorta, and right common iliac and left common iliac arteries. 3. Focal occlusion of the right femoropopliteal segment in the adductor canal. There is multifocal stenotic and occlusive disease in the right lower extremity runoff segment. 4. Focal occlusion of the left femoral-popliteal stent. There is multifocal stenotic and occlusive disease in the left lower extremity runoff segment. [id number] 12/29/2017 - - Read by: Pablito Morillo MD Dictated Date/time: 12/29/17 15:53 Electronically Signed by: Pablito Morillo MD 12/29/17 16:31 FINAL REPORT [facility] Knee 3 Views Bilateral DX Knee 3 Views Bilateral DX EXAM: XR Knee 3 Views Bilateral DX DATE: 06/15/2016 11:44 AM CDT INDICATION: M25.561 Pain in right knee Pain. COMPARISON: None available TECHNIQUE: AP, lateral and skyline patella projections of bilateral knees. DISCUSSION: No acute fracture is identified. Satisfactory alignment of the joint. No soft tissue abnormality is identified. . Incidental presence of vascular stents in the left distal thigh. IMPRESSION: No acute abnormality. . 06/15/2016 - - Read by: Hermann Schulz MD Dictated Date/time: 06/15/16 12:23 Electronically Signed by: Hermann Schulz MD 06/15/16 12:[address] [facility] Vital Signs Vital Sign Value Date Comments Source Respitory Rate 15 04/27/2018 [facility] Systolic (mm Hg) 118 04/27/2018 [facility] Diastolic (mm Hg) 64 04/27/2018 [facility] Systolic (mm Hg) 124 04/27/2018 [facility] Diastolic (mm Hg) 60 04/27/2018 [facility] Respitory Rate 18 04/27/2018 [facility] Systolic (mm Hg) 150 04/27/2018 [facility] Diastolic (mm Hg) 80 04/27/2018 [facility] Respitory Rate 17 04/27/2018 [facility] BMI Calculated 25.11 04/26/2018 [facility] Weight 72.727 04/26/2018 [facility] Height 170.18 cm 04/26/2018 [facility] Heart Rate 66 04/26/2018 [facility] Heart Rate 64 04/22/2018 [facility] Temperature Oral (F) 98.1 F 04/22/2018 [facility] Height 170.18 cm 04/22/2018 [facility] Weight 73.773 04/22/2018 [facility] BMI Calculated 25.47 04/22/2018 [facility] Encounters Location Location Details Encounter Type Encounter Number Reason For Visit Attending Provider ADM Date DC Date Status Source [facility] [place] [facility] [id number] Javier Hartley 10/12/2013 10/13/2013 ELVIS Garcia [facility] [place] [facility] [id number] Tessa Degroot 06/15/2016 06/16/2016 [facility] Inpatient [id number] 04/26/2018 04/27/2018 [facility] Procedures Procedure Code Date Perfomer Comments Source Angioplasty [id number] 01/25/2018 [facility] Atherectomy by laser [id number] 01/25/2018 [facility] Stent placement [id number] 02/16/2016 [facility] Carotid endarterectomy [id number] 02/15/2015 [facility] Hernia repair [id number] 02/15/2011 [facility] Procedure [id number] 02/15/2007 [facility]
--- OUTSIDE RECORDS SUMMARY | 2018-06-16 05:18 | XMS REPORT | Summary of Care ---
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 Role Phone ALVARADO Marte, SELVIN Unavailable Unavailable SHANTE Beard, CADY Unavailable Unavailable NIKO Santizo, MEL Unavailable Unavailable ALVARADO MONTALVOP, SELVIN Unavailable Unavailable CHRISTIANO Santizo, ANTONIO Unavailable Unavailable DANIEL RODRIGUES, LUIS Unavailable Unavailable NIKO RODRIGUES [place], MEL Unavailable Unavailable Unavailable Unavailable Functional Status Name Dates Details Functional status health issues are not documented Status: Name Dates Details Cognitive status health issues are not documented Status: Problems Name Dates Details Acute sinusitis (461.9, J01.90) Status: Active Difficulty waking (780.59, G47.8) Status: Active Dizzy spells (780.4, R42) Status: Active Acute bronchitis (466.0, J20.9) Status: Active Allergic rhinitis (477.9, J30.9) Status: Active Need for Zostavax administration (V04.89, Z23) Status: Active Acute non-recurrent sinusitis of other sinus (461.8, J01.80) Status: Active Low grade fever (780.60, R50.9) Status: Active Sore throat (462, J02.9) Status: Active Fever (780.60, R50.9) Status: Active Cough (786.2, R05) Status: Active Flu (487.1, J11.1) Status: Active Acute streptococcal pharyngitis (034.0, J02.0) Status: Active Flu (487.1, J11.1) Status: Active Chronic pain of both knees (719.46, M25.561) Status: Active Acute pain of right knee (719.46, M25.561) Status: Active Arthralgia of shoulder (719.41, M25.519) Status: Active Otitis media, acute (382.9, H66.90) Status: Active Herpes zoster with other complication (053.79, B02.8) Status: Active Neuralgia, 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, 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) Status: Active Hyperkalemia (276.7, E87.5) Status: Active Seasonal allergies (477.9, J30.2) Status: Active Abnormal blood chemistry (790.6, R79.9) Status: Active Elevated glucose level (790.29, R73.09) Status: Active Bilateral carotid artery disease (447.9, I77.9) Status: Active Essential hypertension (401.9, I10) Status: Active Hypothyroidism (244.9, E03.9) Status: Active Hypercholesterolemia (272.0, E78.00) Status: Active Erectile dysfunction (607.84, N52.9) Status: Active Influenza vaccine refused (V64.06, Z28.21) Status: Active Colonoscopy refused (V64.2, Z53.20) Status: Active Pneumococcal vaccination declined (V64.06, Z28.21) Status: Active Peripheral vascular disease (443.9, I73.9) Status: Active Medications Name Dates Details Levothyroxine Sodium 75 MCG Oral Tablet TAKE ONE TABLET BY MOUTH ONCE DAILY, Quantity: 90 ALVARADO N.P.SELVIN * Start : 21-Jul-2013 Active Aspirin Low Dose 81 MG TABS TAKE 1 TABLET DAILY. * Refills: 0 Active Pravastatin Sodium 40 MG Oral Tablet Take 1 tablet by mouth daily at bedtime * Quantity: 90 Refills: 1 ALVARADO N.PSELVIN Ye * Start : 30-Jan-2015 Active Metoprolol Succinate ER 50 MG Oral Tablet Extended Release 24 Hour TAKE 1 TABLET DAILY. * Quantity: 90 Refills: 1 ALVARADO N.P.SELVIN * Start : 01-Mar-2015 Active Zyrtec TABS * Refills: 0 Active Plavix 75 MG Oral Tablet TAKE 1 TABLET DAILY. * Refills: 0 Active Diclofenac Potassium 50 MG Oral Tablet TAKE 1 TABLET 2 TO 3 TIMES DAILY AFTER MEALS. * Quantity: 90 Refills: 0 SHANTE Bhakta.CADY Mcintosh * Start : 15-Jun-2016 Active Sildenafil Citrate 25 MG Oral Tablet TAKE 1 TABLET DAILY 1 HOUR BEFORE NEEDED * Quantity: 30 Refills: 1 ALVARADO N.P., SELVIN * Start : 22-Feb-2018 Active Allergies and Adverse Reactions Name Dates Details No Known Drug Allergies (Allergy) Status: Active Past Medical History Name Dates Details History of carotid atherosclerosis (V12.59, Z86.79) Status: Resolved History of Denial Of Any Significant Medical History Status: Resolved History of hypothyroidism (V12.29, Z86.39) Status: Resolved History of transient cerebral ischemia (V12.54, Z86.73) Status: Resolved Procedures Procedure Dates Details History of Back Surgery Completed History of Surgery Prostate Prostatotomy Completed History of Hernia Repair Completed History of Endarterectomy Common Carotid Completed History of Femoral Artery Exploration Completed Immunization Name Dates Details Zoster (Zostavax) Lot #: [id number] on: 30-Jan-2015 Family History Name Dates Details No pertinent family history (V49.89, Z78.9) Status: Active Name Dates Details No pertinent family history (V49.89, Z78.9) Status: Active Social History Name Dates Details - Status: Name Dates Details Former smoker Vital Signs Date Test Result Details 91-Snx-630832:30 BP Systolic 166 mm[Hg] Status: BP Diastolic 81 mm[Hg] Status: Height 67 in Status: Weight 164 lb Status: Body Mass Index Calculated 25.69 kg/m2 Status: Body Surface Area Calculated 1.86 m2 Status: 92-Wak-03841:42 BP Systolic 166 mm[Hg] Status: BP Diastolic 77 mm[Hg] Status: Height 67 in Status: Weight 164 lb Status: Body Mass Index Calculated 25.69 kg/m2 Status: Body Surface Area Calculated 1.86 m2 Status: Results Date Description Value Details 22-Apr-20188:39 XRAY Chest 2 views [id number] Chest 2 views SEE NOTES Comments: Two-view chest.INDICATION: Preop.Comparison: 01/21/2018 chest radiograph.FINDINGS: The cardiomediastinal silhouette is normal in size. Lungs are clear.Costophrenic angles are sharp. No suspicious osseous abnormality is seen.IMPRESSION: No acute or active pulmonary findings.SL: [id number] by: Davis Kumarictated Date/time: 04/22/18 09:28Electronically Signed by: Davis Kumar MD 04/22/1908:28FINAL REPORT Plan of Care Name Dates Details Planned Observations Planned Goals not documented Interventions Provided Plan* I will see him again in 3 months for repeat carotid ultrasound. Instructions Name Dates Details Instructions not documented Encounters Appointment; SELVIN CHILDERS NP Encounter Diagnosis: Problem not documented On: 12-May-2016 15:00 Appointment; CADY FREY D.O. Encounter Diagnosis: Problem not documented On: 15-Jun-2016 10:30 Appointment; SELVIN CHILDERS NP Encounter Diagnosis: Problem not documented On: 20-Jan-2017 7:30 Appointment; SELVIN CHILDERS NP Encounter Diagnosis: Problem not documented On: 16-Mar-2017 9:30 Appointment; SELVIN CHILDERS NP Encounter Diagnosis: Problem not documented On: 22-Mar-2017 8:30 Appointment; SELVIN CHILDERS NP Encounter Diagnosis: Problem not documented On: 29-Mar-2017 15:00 Appointment; YAEL SUTHERLAND M.D. Encounter Diagnosis: Problem not documented On: 06-Apr-2017 16:00 Appointment; SELVIN CHILDERS NP Encounter Diagnosis: Problem not documented On: 13-Jul-2017 16:00 Appointment; DR NIKO RENNER Encounter Diagnosis: Problem not documented On: 27-Dec-2017 8:00 Appointment; MEL POPE M.D. Encounter Diagnosis: Problem not documented On: 27-Dec-2017 9:00 Appointment; DR NIKO RENNER Encounter Diagnosis: Problem not documented On: 21-Feb-2018 12:30 Appointment; MEL POPE M.D. Encounter Diagnosis: Problem not documented On: 21-Feb-2018 13:30 Appointment; SELVIN CHILDERS NP Encounter Diagnosis: Problem not documented On: 22-Feb-2018 13:00 Appointment; MEL POPE M.D. Encounter Diagnosis: Problem not documented On: 11-Apr-2018 10:00 Appointment; DR NIKO RENNER Encounter Diagnosis: Problem not documented On: 09-May-2018 13:30 Appointment; MEL POPE M.D. Encounter Diagnosis: Problem not documented On: 09-May-2018 14:30
--- OUTSIDE RECORDS SUMMARY | 2018-06-16 05:18 | XMS REPORT ---
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 Allergies, Adverse Reactions, Alerts This patient has no known allergies or adverse reactions. Medications This patient has no known medications. Results Test Description Test Time Test Comments Text Results Atomic Results Result Comments CHEST 2 VIEWS 2018-06-14 09:28:00 [place] [address] Patient Name: RUBINA PROCTOR MR #: [id number] : 1950 Age/Sex: 67/M Req #: [id number] Adm Physician: Ordered by: GAURAV BENNETT MD Report #: [id number] Location: OR Room/Bed: Procedure: [id number] DX/CHEST 2 VIEWS Exam Date: 06/14/18 Exam Time: 0900 REPORT STATUS: Signed Chest, 2 views, 06/14/2018. History: Preop for f tati surgery. Comparison: None available. Findings: The cardiomediastinal silhouette and pulmonary vasculature are within normal limits. There is biapical pleural thickening. The lungs are clear without evidence of consolidation or pleural effusion. Degenerative changes are present throughout the thoracic spine. There are no acute osseous or soft tissue abnormalities. Impression: No acute cardiopulmonary abnormality. Signed by: Deja Gongora on 06/14/2018 9:29 AM Dictated By: DEJA GONGORA MD 8 Transcr ibed By: WINSTON on 06/14/18928 COPY TO: GAURAV BENNETT MD
--- OUTSIDE RECORDS SUMMARY | 2018-06-16 05:18 | XMS REPORT | Summary of Care ---
Author Organization Unknown Address Unknown Phone Unavailable Encounter HQ Encntr_alias([facility]) [id number] Date(s): 10/12/13 - 10/12/13 [facility] Outpatient Imaging - [address] [address] [place] Discharge Disposition: Home Physician Attending: Javier Hartley MD Reason for Visit 719.41 - JOINT PAIN-SHLD Problem List No data available for this section Allergies, Adverse Reactions, Alerts No data available for this section Medications No data available for this section Medications Administered During Your Visit No data available for this section Immunizations No data available for this section
[2018-06-16 08:25] VITALS: BP 138/72
--- NOTE | 2018-06-16 14:50 | Operative Report ---
DATE OF PROCEDURE: 06/16/2018 SURGEON: Brodie Barton MD PREOPERATIVE DIAGNOSIS: Stenosing tenosynovitis of right index finger. POSTOPERATIVE DIAGNOSIS: Stenosing tenosynovitis of right index finger. OPERATION PERFORMED: Tenovaginotomy of right index finger. ANESTHESIA: General. HISTORY: The patient is a 67-year-old right hand-dominant male, who presents with stenosing tenosynovitis of the right index finger that is recalcitrant to conservative treatment. The risks, benefits, and alternatives of treatment were discussed with the patient and they are prepared to undergo the procedure as outlined. DESCRIPTION OF PROCEDURE: The patient was brought to the operating theater. After the induction of adequate general anesthesia, the patient was prepped and draped in a supine position. A time out was performed by the entire operating room team. An oblique incision was marked out over the A1 david of the right index finger. The upper extremity was exsanguinated, and a tourniquet was inflated to a pressure of 250 mmHg. The incision was made through the skin and subcutaneous tissues. All venous tributaries were controlled with bipolar cautery. The incision was deepened through the palmar tissues. The neurovascular bundles on the radial and ulnar sides of the flexor tendon sheath were identified and retracted away from the flexor tendon sheath and preserved. The A1 david of the affected finger was identified and incised longitudinally, taking care to protect and preserve the flexor tendons within the sheath. After the complete length of the david had been transected, the tendons were placed in a range of motion. There was noted to be good motion without any locking. The wound was then copiously irrigated with bacteriostatic saline and closed with 5-0 nylon in an interrupted horizontal mattress fashion. A Marcaine field block was performed at the operative site. The tourniquet was deflated. All the fingers pinked up nicely. A sterile bulky conforming bandage was applied to the hand, and the patient was returned to the recovery room in satisfactory condition and was discharged with a postoperative instruction sheet as well as a followup appointment. Brodie Barton MD ER/MODL /[id number]
== END | disposition home or self-care (01) ==
LOC: OR 05:00
PROVIDERS: ATTEND Plastic Surgery
DX: M65.321 Trigger finger, right index finger (principal); I10 Essential (primary) hypertension; E11.9 Type 2 diabetes mellitus without complications; Z01.810 Encounter for preprocedural cardiovascular examination; Z01.812 Encounter for preprocedural laboratory examination; Z01.818 Encounter for other preprocedural examination; Z79.02 Long term (current) use of antithrombotics/antiplatelets; Z79.82 Long term (current) use of aspirin; Z86.73 Personal history of transient ischemic attack (TIA), and cerebral infarction without residual deficits
CPT/HCPCS: 26055; 36415; 71046; 85025; 93005; J0690; J1100; J2001; J2250; J2405; J2704